=== PATIENT | female | born 1945 | race Caucasian/White ===

== ENCOUNTER 2021-05-19 07:38 | Outpatient (CLI) | payer OTHER ==
[~2021-05-19 07:38] MED LIST: CALTRATE-600/VI1 TA1 PO; DIOVAN320 MG PO; OMEGA-3 FISH OI1 CA1 PO; VIT C
== END 2021-05-19 07:42 | disposition home or self-care (01) ==
LOC: RX STUDY 07:38
DX: K22.5 Diverticulum of esophagus, acquired (principal); R13.12 Dysphagia, oropharyngeal phase